=== PATIENT | male | born 1990 | race Caucasian/White ===

== ENCOUNTER 2024-12-28 15:43 | Emergency (ER) | payer SELFPAY ==
[2024-12-28 15:51] VITALS: BP 160/113
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
== END 2024-12-28 18:14 | disposition home or self-care (01) ==
LOC: EMR 15:43
PROVIDERS: EMERGENCY PHYSICIAN Emergency Medicine
DX: S16.1XXA Strain of muscle, fascia and tendon at neck level, initial encounter (principal); S29.012A Strain of muscle and tendon of back wall of thorax, initial encounter; V49.40XA Driver injured in collision with unspecified motor vehicles in traffic accident, initial encounter; Y99.0 Civilian activity done for income or pay; Y92.410 Unspecified street and highway as the place of occurrence of the external cause
CPT/HCPCS: 99284; 72072; 72125